=== PATIENT | female | born 1965 | race Caucasian/White ===

== ENCOUNTER 2023-05-24 15:05 | Emergency (ER) | payer BC ==
[~2023-05-24] VITALS: Ht 160 cm; Wt 63.5 kg
[2023-05-24] MEDS ORDERED: HYDROCODONE/ACETAMINOPHEN 5/325 MG TAB PO ONE (16:00)
[2023-05-24] MEDS ORDERED: BUPIVACAINE/PF 0.5% 10ML VIAL IJ ONE (16:00)
[2023-05-24] MEDS ORDERED: BUPIVACAINE/PF 0.5% 30ML VIAL ONE (16:05)
[2023-05-24] MEDS ORDERED: CEPH500B PO (17:09)
[2023-05-24] MEDS ORDERED: MUPI22O TP (17:09)
[2023-05-24 17:12] VITALS: BP 138/82; PULSE 92; RESP 18; O2SAT 99
[2023-05-24] MEDS ORDERED: CEFAZOLIN SODIUM 1 GM VIAL ONE (17:15)
[2023-05-24] MEDS ORDERED: TETANUS/DIPHTHERIA TOXOID [ADULT] 0.5 ML VIAL IM ONE (17:16)
[2023-05-24] MEDS ORDERED: CEFAZOLIN SODIUM 1 GM VIAL IM ONE (17:30)
[2023-05-24] MEDS ORDERED: ACETAMINOPHEN WITH CODEINE 1 TAB TAB PO ONE (17:30)
[2023-05-24] MEDS ORDERED: DIPH,PERTUSS(ACELL),TET VAC/PF 0.5 ML VIAL IM ONE (17:30)
== END 2023-05-24 17:58 | disposition home or self-care (01) ==
LOC: EDH 15:05
DX: S68.113A Complete traumatic metacarpophalangeal amputation of left middle finger, initial encounter (principal); Z98.890 Other specified postprocedural states; X58.XXXA Exposure to other specified factors, initial encounter; Y93.89 Activity, other specified; Y92.89 Other specified places as the place of occurrence of the external cause; Y99.8 Other external cause status
CPT/HCPCS: 11760; 99284; 90714; 73140; 90471; 96372; J0690; J0665 ×2; 12002